=== PATIENT | male | born 1990 | race American Indian/Alaskan Native ===

== ENCOUNTER 2017-02-11 02:34 | Emergency (ER) | payer OTHER ==
[2017-02-11] MEDS ORDERED: NACL 0.9% 1000 ML 1,000 ML IV ONE (02:55)
[2017-02-11 04:11] LABS: Hematocrit 43.2 % (35.5-45.6); Hemoglobin 14.9 gm/dl (11.8-15.2); Mean Corpuscular HGB Conc 34 % (32-34); Mean Corpuscular Hemoglobin 30 pg (28-32); Mean Corpuscular Volume 87 fl (84-94); Platelet Count 262 K/mm3 (140-440); Red Blood Count 4.95 M/mm3 (3.65-5.03); Red Cell Distribution Width 14.7 % (13.2-15.2); White Blood Count 9.5 K/mm3 (4.5-11.0)
[2017-02-11 04:20] LABS: Alanine Aminotransferase 11 units/L (7-56); Albumin 4.3 g/dL (3.9-5); Albumin/Globulin Ratio 1.2 %; Alkaline Phosphatase 86 units/L (35-129); Anion Gap 15 mmol/L; BUN/Creatinine Ratio 21.11; Blood Urea Nitrogen 19 mg/dL (9-20); Calcium 9.5 mg/dL (8.4-10.2); Carbon Dioxide 28 mmol/L (22-30); Chloride 99.9 mmol/L (98-107); Glucose 84 mg/dL (75-100); Lipase 22 units/L (13-60); Potassium 4.3 mmol/L (3.6-5.0); Sodium 139 mmol/L (137-145); Total Protein 7.9 g/dL (6.3-8.2)
[2017-02-11 04:21] LABS: INR 1.01 (0.87-1.13)
[2017-02-11 04:22] LABS: Partial Thromboplastin Time 30.2 Sec. (24.2-36.6)
[2017-02-11 05:33] LABS: Basophils % (Manual) 0 % (0.0-1.8); Blastocytes % (Manual) 0 %; Diff Status Complete; Platelet Estimate Consistent w Auto; RBC Morphology Normal
--- NOTE | 2017-02-11 07:29 | Emergency Department Report ---
ED GI Bleed HPI - General Chief complaint: GI Bleed Stated complaint: RECTAL BLEEDING/ASTHMA Time Seen by Provider: 02/11/17 06:38 Source: patient Mode of arrival: Ambulatory Limitations: No Limitations - History of Present Illness Initial comments: Mr. Castellanos is a 26 years old male coming is one-month history of skin pigmentation mainly in the extensor part of his joints including both knees and both elbows he also stated that since yesterday he had a bowel movement that is contained some blood. Denied any abdominal pain no nausea no vomiting no diarrhea he said he has been feeling dizzy since yesterday no fever. MD complaint: blood on toilet paper -: Gradual Severity scale (0 -10): 0 Associated Symptoms: denies: nausea, vomiting - Related Data Home Medications Medication Instructions Recorded Confirmed Last Taken No Known Home Medications [No 02/11/17 02/11/17 Unknown Reported Home Medications] Allergies Allergy/AdvReac Type Severity Reaction Status Date / Time No Known Allergies Allergy Verified 02/11/17 06:39 ED Review of Systems ROS: Stated complaint: RECTAL BLEEDING/ASTHMA Other details as noted in HPI Comment: All other systems reviewed and negative Constitutional: denies: chills, fever Respiratory: denies: cough, shortness of breath Cardiovascular: denies: chest pain, palpitations Endocrine: denies: excessive sweating, flushing Gastrointestinal: hematochezia. denies: abdominal pain, nausea, vomiting, constipation, melena Neurological: denies: headache ED Past Medical Hx - Past Medical History Hx Psychiatric Treatment: Yes (ADHD) Hx Asthma: Yes - Surgical History Past Surgical History?: No - Social History Smoking Status: Never Smoker Substance Use Type: Marijuana - Medications Home Medications: Home Medications Medication Instructions Recorded Confirmed Last Taken Type No Known Home Medications [No 02/11/17 02/11/17 Unknown History Reported Home Medications] ED Physical Exam - General Limitations: No Limitations General appearance: alert, in no apparent distress - Head Head exam: Present: atraumatic - Eye Eye exam: Present: normal appearance. Absent: scleral icterus - ENT ENT exam: Present: normal exam, normal orophraynx, mucous membranes moist - Neck Neck exam: Present: normal inspection, full ROM. Absent: tenderness, meningismus, lymphadenopathy, thyromegaly - Respiratory Respiratory exam: Present: normal lung sounds bilaterally. Absent: wheezes, rales, rhonchi, stridor, decreased breath sounds, prolonged expiratory - Cardiovascular Cardiovascular Exam: Present: regular rate, normal rhythm, normal heart sounds. Absent: systolic murmur, diastolic murmur - GI/Abdominal GI/Abdominal exam: Present: soft, normal bowel sounds. Absent: distended, tenderness, guarding, rebound, rigid, diminished bowel sounds, hyperactive bowel sounds, hypoactive bowel sounds, organomegaly, mass, bruit, pulsatile mass , hernia - Rectal Rectal exam: Present: normal inspection, normal rectal tone. Absent: black stool, bloody stool, fecal impaction, mass, tenderness - Back Exam Back exam: Present: normal inspection. Absent: CVA tenderness (R), CVA tenderness (L) - Neurological Exam Neurological exam: Present: alert, oriented X3, CN II-XII intact - Skin Skin exam: Present: warm, intact, normal color ED Course Vital Signs 02/11/17 02:44 Temperature 98.4 F Pulse Rate 68 Respiratory 18 Rate Blood Pressure 128/88 Blood Pressure 128/88 [Left] O2 Sat by Pulse 98 Oximetry - Reevaluation(s) Reevaluation #1: 02/11/17 09:10 Patient remained stable in the ER asymptomatic normal rectal bleeding that can be seen his Hemoccult is negative. Advised patient to follow up with his primary care physician for further evaluation. ED Medical Decision Making - Lab Data Result diagrams: 02/11/17 03:10 02/11/17 03:10 Critical care attestation.: If time is entered above; I have spent that time in minutes in the direct care of this critically ill patient, excluding procedure time. ED Disposition Clinical Impression: GI bleed Disposition: DC-01 TO HOME OR SELFCARE Is pt being admited?: No Condition: Stable Instructions: Rectal Bleeding (ED) Referrals: PRIMARY CARE, [Primary Care Provider] - 3-5 Days Forms: Accompanied Note
[2017-02-11 09:39] VITALS: BP 118/68
== END 2017-02-11 09:39 | disposition home or self-care (01) ==
LOC: ED 02:34
DX: K62.5 Hemorrhage of anus and rectum (principal); F90.9 Attention-deficit hyperactivity disorder, unspecified type; J45.909 Unspecified asthma, uncomplicated; F12.90 Cannabis use, unspecified, uncomplicated
CPT/HCPCS: 36415; 80053; 82270; 83690; 85007; 85025; 85610; 85730; 86850; 86900; 86901; 93005; 93010

== ENCOUNTER 2017-10-25 16:22 | Emergency (ER) | payer SELFPAY ==
[2017-10-25 16:52] VITALS: BP 133/71
== END 2017-10-26 01:43 | disposition left against medical advice (07) ==
LOC: ED 16:22
DX: M54.2 Cervicalgia (principal); Z53.21 Procedure and treatment not carried out due to patient leaving prior to being seen by health care provider